=== PATIENT | female | born 1995 | race Caucasian/White ===

== ENCOUNTER 2017-05-13 06:57 | Inpatient (IN) | payer MEDICAID ==
[~2017-05-13] VITALS: Ht 160 cm; Wt 73.1 kg
--- NOTE | ~2017-05-13 | OR ---
PATIENT'S NAME: DIMAS CUADRA [facility] AGE: 21 Y [address] ROOM: [address] [place], [place] [address] LOCATION: GOBS ADMIT DATE: 05/13/2017 OR/Procedure Report DISCHARGE DATE: FAMILY PHYSICIAN: Guillaume Hankins MD ATTENDING PHYSICIAN: Guillaume Hankins SURGEON: Guillaume Hankins MD REGISTERED MIDWIFE: DATE OF PROCEDURE: 05/13/2017 CLINICAL HISTORY: The patient is a 21-year-old, 4, para 1, who woke this morning around 4:30 a.m. with some mild contractions. She is currently 40 and 4/7th weeks gestation with an EDC of 05/09/2017. The contractions stayed very mild up until between 6:30 a.m. and 7 o'clock in the morning when they really intensified quickly. She was rushed to the hospital and came in urgently in the Labor and Delivery. Her arrival was at 07:02 a.m. Monitors placed at 7:04 a.m. Heart rate was noted be in the 90s. Spontaneous rupture of membranes occurred at 7:05 a.m. with light meconium. See records for testing, and all normal. PREOPERATIVE DIAGNOSES: 1. A 21-year-old, 4, para 1, at 40 and 4/7th weeks gestation with precipitous labor. 2. Light meconium staining. POSTOPERATIVE DIAGNOSES: 1. A 21-year-old, 4, para 1, at 40 and 4/7th weeks gestation with precipitous labor. 2. Light meconium staining. 3. Precipitous vaginal delivery. PROCEDURE: Vaginal delivery. PROCEDURE NOTE: I was called right at 07:04 a.m. right after the patient was noted to be 9 cm. Fortunately, I was in the hospital and came immediately to Labor and Delivery. She was noted be complete at that time, and feeling very pushy. She was set up in dorsal lithotomy position. There was no time for a standard Betadine prep. heart tones had been noted to be in the 90s. With the next contraction, she delivered with the second push, a viable female infant who cried with vigorously with stimulation. Delivery was at 7:10 a.m. Baby was stimulated and dried off and then laid on mother's abdomen and nursery nurse assisted and cares. scores were 8 and 9. The cord after a quick pulsating was then clamped and cut. Cord blood and pH blood was obtained. Placenta was delivered spontaneously and intact with 3 vessel cord. Uterus was firm. The patient did not have time for an IV and did not receive any Pitocin postdelivery. Cervix was inspected and noted to PATIENT'S NAME: DIMAS CUADRA [facility] AGE: 21 Y [address] ROOM: [address] [address] LOCATION: [facility] ADMIT DATE: 05/13/2017 OR/Procedure Report DISCHARGE DATE: FAMILY PHYSICIAN: Guillaume Hankins MD ATTENDING PHYSICIAN: Guillaume Hankins be without laceration. There was no vaginal sidewall laceration or hematoma. There was no perineal laceration. There was a superficial laceration at the 12 o'clock position near the area of the clitoris, but there was no bleeding and this was not repaired, it laid together very nicely, not requiring repair. Estimated blood loss was 200 mL. Mom and baby remained in Labor and Delivery room in good condition. MD SHIRLEY NOVAK/vincent /[id number] d: 05/13/17 1206 t: 05/29/17 1318, OPERATIVE SUMMARY
[2017-05-13 07:36] LABS: PCO2 63 mmHg (35-45)
[2017-05-13 07:37] LABS: BICARBONATE 22.6 mmol/L (18.0-23.0); PO2 17 mmHg (80-90)
[2017-05-13 07:56] LABS: BASOPHIL % 0.2 %; EOSINOPHIL % 0.2 %; HEMATOCRIT 40.6 % (33.0-46.0); HEMOGLOBIN 13.7 g/dL (11.0-15.0); IMMATURE GRANULOCYTE # 0.1 K/uL (0.0-0.3); IMMATURE GRANULOCYTE % 0.5 %; LYMPHOCYTE # 1.2 K/uL (0.8-4.0); LYMPHOCYTE % 10.6 %; MCH 31.6 pg (27.0-34.0); MCHC 33.7 gm/dL (32.0-36.5); MCV 93.5 fl (83.0-98.0); MONOCYTE # 0.4 K/uL (0.0-1.0); MPV 10.7 fl (9.4-12.4); NEUTROPHIL # (ANC) 9.4 K/uL (1.8-7.8); NEUTROPHIL % 84.5 %; NRBC % 0 /100WBC (0-0.00); PLATELET COUNT 141 K/uL (150-450); RBC 4.34 M/uL (3.50-5.00); RDW-CV 12.9 % (11.9-14.6); WBC 11.1 K/uL (4.0-11.0)
[2017-05-13] MEDS ORDERED: PRENATAL 1+1)(P1 TAB PO (11:16)
--- NOTE | 2017-05-13 15:11 | NUR ---
Last VS: T:99.0 P:102 R: 14 BP: 98/63 Pain rating: . Last pain med: refused medication Medicated at: Effective: Breasts: , Nipples: Fundus: firm even to 1 finger down Lochia: small-moderate amount Epis/Perineum: bottom slightly swollen Voiding well: yes Significant event: . patient has been up and had a tidy. ate food and had lots of visitors. thinking about going home yet tonight.
--- NOTE | 2017-05-13 16:53 | NUR ---
Met patient and family at bedside today. Introduced myself and explained my role with the CM department. Per patient she is hoping to discharge early this evening with baby Priscilla. Per patient Dr. Hankins said he will come by the hospital by 1900 and will decide if mom and baby can discharge to home. Patient states she has all necessary baby items at home. She plans on nursing and has a breast pump already at home. She is not yet established with [facility] so I encouraged her to contact [facility] and see if she can use their services. I also instructed her to contact Medicaid and notify them of baby's . I provided her with a list of community resources including [facility] and [employer] [place]. We also discussed signs and symptoms of post depression and I left her the hand out to refer to. Mom denies any discharge needs or concerns.
== END 2017-05-13 19:58 | disposition disaster alternative care site (69) | DRG 775 ==
LOC: GOBS 06:57 → GOBM 06:57 → GOBS 07:00
PROVIDERS: ADMIT Family Medicine
PROC: 10E0XZZ Delivery of Products of Conception, External Approach (ICD-10-PCS; principal; 2017-05-13)
DX: O62.3 Precipitate labor (principal); O48.0 Post-term pregnancy; O76 Abnormality in fetal heart rate and rhythm complicating labor and delivery; O77.0 Labor and delivery complicated by meconium in amniotic fluid; Z3A.40 40 weeks gestation of pregnancy; Z37.0 Single live birth